=== PATIENT | female | born 1970 | race Two or more races ===

== ENCOUNTER 2016-07-10 11:44 | Emergency (ER) | payer BC ==
[2016-07-10] MEDS ORDERED: methylPREDNISolone NA SUCC 125 MG/2 ML VIAL IVPB ONE (12:13)
[2016-07-10] MEDS: ALBUTEROL SO4 2.5/IPRATROPIUM 0.5 INH SOL 3 ML VIAL.NEB. NEB SCH ×4 (12:22→13:35)
[2016-07-10 12:27] VITALS: BMI 38.4
--- NOTE | 2016-07-10 12:39 | PDOC ---
History of Present Illness - General Chief Complaint: Chest Pain Stated Complaint: CHEST PAIN Time Seen by Provider: 07/10/16 11:55 History Source: Patient Exam Limitations: No Limitations - History of Present Illness Initial Comments: 07/10/16 12:34 46-year-old female presents the ED with complaints of cough and wheezing since yesterday now associated with midsternal chest tightness and soreness. Pt took no medication and decided to come to the ED. Patient states history of asthma and PE currently on Eliquis. Patient denies shortness of breath, fever, chills, nausea, palpitations, or left-sided chest pain. Timing/Duration: reports: getting worse, yesterday Severity: reports: moderate Past History - Past Medical History Allergies/Adverse Reactions: Allergies Allergy/AdvReac Type Severity Reaction Status Date / Time No Known Allergies Allergy Unverified 07/10/16 12:15 Home Medications: Ambulatory Orders Apixaban [Eliquis] 5 mg PO BID 07/10/16 Methimazole [Tapazole -] 10 mg PO DAILY 07/10/16 Omeprazole 40 mg PO DAILY 07/10/16 Sertraline HCl [Zoloft] 100 mg PO DAILY 07/10/16 Asthma: Yes GI Disorders: Yes (Acid reflux) Thyroid Disease: Yes (Hyperthyroid) Other medical history: PE - Psycho/Social/Smoking Cessation Hx Suicidal Ideation: No Smoking History: Current every day smoker Number of Cigarettes Smoked Daily: 10 Information on smoking cessation initiated: No Hx Alcohol Use: Yes (occasional) Drug/Substance Use Hx: No Patient Lives Alone: No Respiratory Specific PMHX - Complaint Specific PMHX Pulmonary Embolus: Yes Review of Systems - Review of Systems Able to Perform ROS?: Yes Constitutional: No: Symptoms Reported HEENTM: No: Symptoms Reported Respiratory: Yes: Cough, Wheezing. No: Shortness of Breath Cardiac (ROS): Yes: Chest Pain ABD/GI: No: Symptoms Reported : No: Symptoms Reported Musculoskeletal: No: Symptoms Reported Integumentary: No: Symptoms Reported Neurological: No: Symptoms reported Endocrine: No: Symptoms Reported Hematologic/Lymphatic: Yes: Blood Clots *Physical Exam - Vital Signs Last Vital Signs Temp Pulse Resp BP Pulse Ox 98.7 F 70 18 114/59 100 07/10/16 12:10 07/10/16 12:10 07/10/16 12:10 07/10/16 12:10 07/10/16 12:17 - Physical Exam General Appearance: Yes: Nourished, Appropriately Dressed. No: Apparent Distress HEENT: positive: EOMI, MADDY. negative: Pale Conjunctivae Neck: positive: Normal Thyroid, Supple Respiratory/Chest: positive: Chest Tender (midsternal), Wheezing (expiratory bilateral and mild inspiratory to left). negative: Respiratory Distress, Accessory Muscle Use, Rapid RR Cardiovascular: positive: Regular Rhythm, Regular Rate. negative: Murmur Gastrointestinal/Abdominal: positive: Soft. negative: Tenderness Integumentary: positive: Normal Color, Warm, Moist Neurologic: positive: Motor Strength 5/5 (ambulatory) ED Treatment Course - LABORATORY CBC & Chemistry Diagram: 07/10/16 12:30 07/10/16 12:30 - RADIOLOGY Radiology Studies Ordered: Category Date Time Status CHEST X-RAY PORTABLE* [RAD] Stat Radiology 07/10/16 12:12 Taken Medical Decision Making - Medical Decision Making 07/10/16 12:19 Patient with increasing cough and wheezing since yesterday now associated with midsternal chest tightness and tenderness on exam. Patient ordered for labs including DuoNeb's, Solu-Medrol, chest x-ray, EKG and 1 set of cardiac profile. 07/10/16 14:47 Laboratory Tests 07/10/16 07/10/16 07/10/16 12:30 12:30 12:30 WBC 7.7 Hgb 11.3 Hct 35.2 Neutrophils % 53.6 Sodium 141 Potassium 4.6 Chloride 105 Carbon Dioxide 28 Anion Gap 8 BUN 15 Creatinine 1.0 Creat Clearance w eGFR 59.43 Random Glucose 81 Calcium 8.8 AST 12 L ALT 16 Alkaline Phosphatase 90 Troponin I < 0.02 Serum , Qual Pending Patient remains asymptomatic and states feeling much better after receiving the medication. Patient's repeat exam was much improved with lungs clear to bases without wheezing or use of accessory muscle usage. Repeat vital stable. *DC/Admit/Observation/Transfer Diagnosis at time of Disposition: Exacerbation of asthma - Discharge Dispostion Disposition: HOME Condition at time of disposition: Improved - Patient Instructions Printed Discharge Instructions: DI for Asthma -- Adult Additional Instructions: Take prednisone starting tomorrow. Use your inhaler and carry it with you at all times. Follow-up with your PCP and return to the ED if your symptoms worsen. - Post Discharge Activity Work/School Note: Back to Work
[2016-07-10 13:02] LABS: BASOPHIL 0.9 % (0-2.0); EOSINOPHIL 2.5 % (0-4.5); MCH 23.4 pg (25.7-33.7); MCHC 32.1 g/dl (32.0-36.0); MEAN CELL VOLUME 72.8 fl (80-96); MEAN PLT VOLUME 8.2 fl (7.5-11.1); NEUTROPHILS 53.6 % (42.8-82.8); PLATELET COUNT 310 K/MM3 (134-434); RDW 16.6 % (11.6-15.6); WHITE BLOOD COUNT 7.7 K/mm3 (4.0-10.0)
[2016-07-10 13:37] LABS: ALBUMIN 3.6 g/dl (3.4-5.0); ANION GAP 8 (8-16); BILIRUBIN,TOTAL 0.3 mg/dL (0.2-1.0); CALCIUM 8.8 mg/dL (8.5-10.1); CO2 28 mmol/L (21-32); GLUCOSE,RANDOM 81 mg/dL (74-106); SGOT/AST 12 U/L (15-37); SGPT/ALT 16 U/L (12-78); TOT PROT 7.6 g/dl (6.4-8.2)
[2016-07-10 13:40] LABS: ALK PHOS 90 U/L (45-117); TROPONIN I < 0.02 ng/ml (0.00-0.05)
[2016-07-10 14:33] VITALS: BP 122/72; PULSE 89; TEMP 98.9
== END 2016-07-10 15:18 | disposition home or self-care (01) ==
LOC: JER 11:44
PROC: 3E0F7GC Introduction of Other Therapeutic Substance into Respiratory Tract, Via Natural or Artificial Opening (ICD-10-PCS; principal; 2016-07-10)
PROC: 3E0333Z Introduction of Anti-inflammatory into Peripheral Vein, Percutaneous Approach (ICD-10-PCS; 2016-07-10)
DX: J45.901 Unspecified asthma with (acute) exacerbation (principal); E05.90 Thyrotoxicosis, unspecified without thyrotoxic crisis or storm; K21.9 Gastro-esophageal reflux disease without esophagitis; Z86.711 Personal history of pulmonary embolism; Z79.01 Long term (current) use of anticoagulants
CPT/HCPCS: 36415; 71010-TC; 80053; 82550; 84484; 84703; 85025; 99285-25